=== PATIENT | male | born 1935 | race Caucasian/White ===

== ENCOUNTER 2019-06-11 12:41 | Emergency (ER) | payer MEDICARE, OTHER ==
[~2019-06-11] VITALS: Ht 193 cm; Wt 81.6 kg
--- NOTE | 2019-06-11 12:43 | NUR ---
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
--- NOTE | 2019-06-11 12:47 | NUR ---
SEEN AND EXAMINED BY .
[2019-06-11] MEDS ORDERED: KETOROLAC TROMETHAMINE 15 MG/ML VIAL ONE (12:55)
--- NOTE | 2019-06-11 12:55 | NUR ---
URINE SPECIMEN COLLECTED AND SENT TO LAB.
[2019-06-11] MEDS ORDERED: KETOROLAC TROMETHAMINE INJ 30 MG/ML VIAL IV ONE (13:00)
--- NOTE | 2019-06-11 13:00 | NUR ---
IV LINE ESTABLISHED, BLOOD DRAWNED AND SENT TO LAB
[2019-06-11 13:02] LABS: BASOPHILS % (AUTO) 0.8 % (0.0-2.0); EOSINOPHILS % (AUTO) 4.6 % (0.0-6.0); HEMATOCRIT 39 % (39-51); HEMOGLOBIN 13.7 g/dL (13.5-17.5); LYMPHOCYTES # (AUTO) 0.9 /CMM (0.8-4.8); LYMPHOCYTES % (AUTO) 14.8 % (20.0-44.0); MEAN CORPUSCULAR HGB CONC 35 g/dl (31.0-36.0); MEAN CORPUSCULAR VOLUME 95 fL (80-96); MONOCYTES # (AUTO) 0.5 /CMM (0.1-1.30); MONOCYTES % (AUTO) 8.3 % (2.0-12.0); NEUTROPHILS # (AUTO) 4.2 /CMM (1.8-8.9); NEUTROPHILS % (AUTO) 71.5 % (43.0-81.0); PLATELET COUNT (AUTO) 118 /CMM (150-450); RED BLOOD CELL COUNT(AUTO) 4.12 MIL/uL (4.5-6.0); WHITE BLOOD COUNT (AUTO) 5.9 K/uL (4.3-11.0)
[2019-06-11 13:09] LABS: CREATININE 1.3 mg/dL (0.6-1.3); POTASSIUM 4.1 mmol/L (3.5-5.1)
[2019-06-11 13:10] LABS: APPEARANCE,URINE Clear (CLEAR); BILIRUBIN,URINE Negative (NEGATIVE); BLOOD, URINE Large Ery/uL (NEGATIVE); COLOR,URINE Yellow (YELLOW); KETONES,URINE Negative (NEGATIVE); LEUKOCYTE ESTERASE ,URINE Negative (NEGATIVE); NITRITE, URINE Negative (NEGATIVE); PH,URINE 5.5 (5.0-8.0); PROTEIN,URINE Negative (NEGATIVE); UGLUCOSE Negative (NEGATIVE); UROBILINOGEN,URINE 0.2 EU/dL (0.2)
[2019-06-11 13:11] LABS: BACTERIA,URINE Rare /HPF (None Seen); SQUAMOUS EPITHELIAL CELL,UR Rare /HPF (None Seen); WBC,URINE 0-2 /HPF (0-3)
[2019-06-11 13:15] LABS: ALBUMIN 3.7 g/dL (3.4-5.0); BILIRUBIN,DIRECT 0.2 mg/dL (0.0-0.2); BILIRUBIN,TOTAL 0.6 mg/dL (0.2-1.0); TOTAL PROTEIN, SERUM 6.5 g/dL (6.4-8.2)
[2019-06-11] MEDS ORDERED: ASPIRIN 325 MG TABLET PO ONE (13:30)
--- NOTE | 2019-06-11 13:33 | NUR ---
PT IS WHEELED TO CT SCAN VIA [facility].
[2019-06-11 14:24] VITALS: BP 142/72
--- NOTE | 2019-06-11 14:24 | NUR ---
IV removed. Catheter intact and site benign. Pressure and 4x4 applied to site. No bleeding noted. Patient discharged to home in stable condition. Written and verbal after care instructions given. Patient verbalizes understanding of instruction.
== END 2019-06-11 14:25 | disposition home or self-care (01) ==
LOC: ER 12:56
DX: N13.2 Hydronephrosis with renal and ureteral calculous obstruction (principal); E86.0 Dehydration; Z95.0 Presence of cardiac pacemaker
CPT/HCPCS: 36415; 74176; 80048; 80076; 81001; 83690; 85025; 87086; 96374; 99284; J1885; 81000-TC